=== PATIENT | male | born 1995 | race Caucasian/White ===

== ENCOUNTER 2018-12-15 18:19 | Emergency (ER) | payer SELFPAY ==
--- NOTE | 2018-12-15 18:51 | ER ---
Nurse's Notes [facility] Name: Benjamin Fields Age: 23 yrs Sex: Male : 1995 Arrival Date: 12/15/2018 Time: 18:20 Bed Waiting Private MD: Diagnosis: Presentation: 12/15 18:36 Presenting complaint: Patient states: My mental health heel caser advised me to come sg to the ER to have a rash evaluated, denies N/V/D/Fever at this time. Transition of care: patient was not received from another setting of care. Onset of symptoms was December 15, 2018. Risk Assessment: Do you want to hurt yourself or someone else? Patient reports no desire to harm self or others. Initial Sepsis Screen: Does the patient meet any 2 criteria? No. Patient's initial sepsis screen is negative. Does the patient have a suspected source of infection? No. Patient's initial sepsis screen is negative. Care prior to arrival: None. 18:36 Method Of Arrival: Ambulatory sg 18:36 Acuity: ADELINA 5 sg Historical: - Allergies: 18:36 NKDA; sg - PMHx: 18:36 Depression; insomnia; sg - PSHx: 18:36 None; sg - Immunization history:: Adult Immunizations up to date. - Social history:: Smoking status: Patient/guardian denies using tobacco. - Ebola Screening: : Patient negative for fever greater than or equal to 101.5 degrees Fahrenheit, and additional compatible Ebola Virus Disease symptoms Patient denies exposure to infectious person Patient denies travel to an Ebola-affected area in the 21 days before illness onset No symptoms or risks identified at this time. ED Course: 18:20 Patient arrived in ED. as 18:36 Arm band placed on. sg 18:37 Triage completed. sg Administered Medications: No medications were administered Outcome: 18:50 Patient left the ED. sg Signatures: Wilian Bhat RN RN Margo Gonzalez as
== END 2018-12-15 18:50 | disposition left against medical advice (07) ==
LOC: ER 18:19
DX: Z53.21 Procedure and treatment not carried out due to patient leaving prior to being seen by health care provider (principal)
CPT/HCPCS: 99281

== ENCOUNTER 2019-06-28 13:51 | Emergency (ER) | payer SELFPAY ==
[2019-06-28] MEDS ORDERED: IBUPROFEN 400 MG TAB ONE (14:31)
[2019-06-28] MEDS ORDERED: CYCLOBENZAPRINE 10 MG TAB ONE (14:31)
[2019-06-28] MEDS ORDERED: ACETAMINOPHEN 325 MG TABLET ONE (14:32)
--- NOTE | 2019-06-28 15:05 | RAD REPORT ---
EXAM DESCRIPTION: RAD - Shoulder Right 2 View - 06/28/2019 2:44 pm CLINICAL HISTORY: Right shoulder pain FINDINGS: No fracture or dislocation is seen. No bone or joint abnormality seen
--- NOTE | 2019-06-28 15:30 | EDPHYS ---
Physician Documentation [facility] Name: Benjamin Fields Age: 24 yrs Sex: Male : 1995 Arrival Date: 06/28/2019 Time: 13:53 Bed 25 Private MD: ED Physician Ed Ibarra HPI: 06/28 14:25 This 24 yrs old Male presents to ER via Ambulatory with complaints of cp Shoulder Pain. 14:25 The patient or guardian complains of pain, that is acute. right shoulder. Context: cp resulted from an unknown reason, The patient reports no obvious deformity. 14:25 Onset: The symptoms/episode began/occurred 2 day(s) ago. cp 14:25 Associated signs and symptoms: Pertinent positives: radiating pain to right lateral cp neck, Pertinent negatives: chest pain, dyspnea, Numbness in left arm shortness of breath, tingling, Weakness in left arm. Severity of symptoms: in the emergency department the symptoms are unchanged, despite home interventions. Historical: - Allergies: 14:10 NKDA; ss - Home Meds: 14:10 None [Active]; ss - PMHx: 14:10 Depression; ss - PSHx: 14:10 None; ss - Immunization history:: Adult Immunizations not up to date. - Social history:: Smoking status: Patient uses tobacco products, smokes one-half pack cigarettes per day. - Ebola Screening: : Patient denies exposure to infectious person Patient denies travel to an Ebola-affected area in the 21 days before illness onset. ROS: 14:30 Constitutional: Negative for body aches, chills, fever, poor PO intake. cp 14:30 Neck: Positive for pain with movement, pain at rest, of the right lateral neck, cp Negative for injury or acute deformity, stiffness. 14:30 Cardiovascular: Negative for chest pain, edema, palpitations. 14:30 Respiratory: Negative for cough, shortness of breath, wheezing. 14:30 MS/extremity: Positive for pain, of the right shoulder, Negative for injury or acute deformity, decreased range of motion, paresthesias. 14:30 Neuro: Negative for headache, weakness. 14:30 All other systems are negative. Exam: 15:30 Head/Face: Normocephalic, atraumatic. cp 15:30 Constitutional: The patient appears in no acute distress, alert, awake, non-toxic, well developed, well nourished. 15:30 Neck: External neck: tenderness, right lateral neck, C-spine: vertebral tenderness, is not appreciated, crepitus, is not appreciated. 15:30 Chest/axilla: Inspection: normal, Palpation: is normal, no crepitus, no tenderness. 15:30 Cardiovascular: Rate: normal, Rhythm: regular, Pulses: Pulses are 2+ in right radial artery and left radial artery. Heart sounds: murmur, not appreciated. 15:30 Respiratory: the patient does not display signs of respiratory distress, Respirations: normal, no use of accessory muscles, no retractions, no splinting, no tachypnea, labored breathing, is not present. 15:30 Musculoskeletal/extremity: ROM: full passive range of motion, in the right shoulder, Joints: All joints are normal except the right shoulder displays painful range of motion, tenderness. Vital Signs: 14:10 BP 110 / 75; Pulse 90; Resp 16; Temp 98.2(O); Pulse Ox 96% on R/A; Weight 95.25 kg; ss Height 5 ft. 10 in. (177.80 cm); Pain 6/10; 15:37 BP 111 / 78; Pulse 80; Resp 18; Temp 98; Pulse Ox 99% on R/A; mg2 14:10 Body Mass Index 30.13 (95.25 kg, 177.80 cm) ss MDM: 14:17 Patient medically screened. su 15:29 Data reviewed: vital signs, nurses notes, radiologic studies, plain films. 15:29 Differential diagnosis: Anterior dislocation with fracture, Anterior dislocation cp without fracture, Posterior dislocation with fracture, Posterior dislocation without fracture, tendonitis. Test interpretation: by ED physician or midlevel provider: plain radiologic studies, xrays right shoulder negative for fracture. Counseling: I had a detailed discussion with the patient and/or guardian regarding: the historical points, exam findings, and any diagnostic results supporting the discharge/admit diagnosis, radiology results, the need for outpatient follow up, a orthopedic surgeon, to return to the emergency department if symptoms worsen or persist or if there are any questions or concerns that arise at home. Response to treatment: the patient's symptoms have markedly improved after treatment, and as a result, I will discharge patient. 06/28 14:23 Order name: XRAY Shoulder RIGHT 2 view; Complete Time: 15:28 cp 06/28 15:28 Interpretation: Reviewed. cp 06/28 15:28 Order name: Sling; Complete Time: 15:36 cp Administered Medications: 14:33 Drug: Flexeril 10 mg Route: PO; tr5 15:00 Follow up: Response: No adverse reaction; Marked relief of symptoms mg2 14:33 Drug: Tylenol 650 mg Route: PO; tr5 15:00 Follow up: Response: No adverse reaction; Marked relief of symptoms mg2 14:34 Drug: Ibuprofen 800 mg Route: PO; tr5 15:00 Follow up: Response: No adverse reaction; Marked relief of symptoms mg2 Disposition: 16:00 Chart complete. cp Disposition: 06/28/19 15:29 Discharged to Home. Impression: Pain in right shoulder. - Condition is Stable. - Discharge Instructions: Shoulder Pain, Shoulder Range of Motion Exercises. - Prescriptions for Cyclobenzaprine 10 mg Oral Tablet - take 1 tablet by ORAL route every 8 hours As needed no driving while taking medication; 20 tablet. Diclofenac Sodium 75 mg Oral Tablet Sustained Release - take 1 tablet by ORAL route 2 times per day; 30 tablet. - Medication Reconciliation Form, Thank You Letter, Antibiotic Education, Prescription Opioid Use, Work release form form. - Follow up: Calvin Conway MD; When: 5 - 6 days; Reason: pain continues. - Problem is new. - Symptoms have improved. Addendum: 06/30/2019 08:04 Co-signature as Attending Physician, Ed Ibarra MD I agree with the assessment and c echeverria plan of care. Signatures: Dispatcher [employer] EDMT Ed Ibarra MD MD cha Smirch, Shelby, RN RN ss Ed Hutchison PA PA cp Conor Lopez RN RN mg2 Cali Goodwin RN RN tr5 Corrections: (The following items were deleted from the chart) 06/28 15:47 15:29 06/28/2019 15:29 Discharged to Home. Impression: Pain in right shoulder. mg2 Condition is Stable. Forms are Medication Reconciliation Form, Thank You Letter, Antibiotic Education, Prescription Opioid Use. Follow up: Dr. Calvin Conway; When: 5 - 6 days; Reason: pain continues. Problem is new. Symptoms have improved. cp 06/29 15:16 06/28 14:25 Onset: The symptoms/episode began/occurred 4 day(s) ago, cp cp
--- NOTE | 2019-06-28 15:30 | ER ---
Nurse's Notes [facility] Name: Benjamin Fields Age: 24 yrs Sex: Male : 1995 Arrival Date: 06/28/2019 Time: 13:53 Bed 25 Private MD: Diagnosis: Pain in right shoulder Presentation: 06/28 14:08 Presenting complaint: Patient states: R shoulder pain x 2 days that has now began to ss migrate up R side of neck. Worse with range of motion. Denies injury. Transition of care: patient was not received from another setting of care. Onset of symptoms was June 26, 2019. Risk Assessment: Do you want to hurt yourself or someone else? Patient reports no desire to harm self or others. Initial Sepsis Screen: Does the patient meet any 2 criteria? No. Patient's initial sepsis screen is negative. Does the patient have a suspected source of infection? No. Patient's initial sepsis screen is negative. Care prior to arrival: None. 14:08 Method Of Arrival: Ambulatory ss 14:08 Acuity: ADELINA 4 ss Historical: - Allergies: 14:10 NKDA; ss - Home Meds: 14:10 None [Active]; ss - PMHx: 14:10 Depression; ss - PSHx: 14:10 None; ss - Immunization history:: Adult Immunizations not up to date. - Social history:: Smoking status: Patient uses tobacco products, smokes one-half pack cigarettes per day. - Ebola Screening: : Patient denies exposure to infectious person Patient denies travel to an Ebola-affected area in the 21 days before illness onset. Screenin:34 Abuse screen: Denies threats or abuse. Nutritional screening: No deficits noted. tr5 Tuberculosis screening: No symptoms or risk factors identified. Fall Risk None identified. Assessment: 14:34 General: Appears uncomfortable, Behavior is calm, cooperative, appropriate for age. tr5 Pain: Complains of pain in anterior aspect of right shoulder and posterior aspect of right shoulder Pain radiates to neck Pain at worst was 6 out of 10 on a pain scale. Quality of pain is described as stabbing, Pain began 2-3 days ago. Is intermittent, Alleviated by rest, Aggravated by increased activity, repositioning. Neuro: Level of Consciousness is awake, alert, obeys commands, Oriented to person, place, time, Medical Practice Assistant are equal bilaterally Moves all extremities. Cardiovascular: Heart tones present Capillary refill < 3 seconds Pulses are all present. Edema is absent. Respiratory: Airway is patent Trachea midline Respiratory effort is even, unlabored, Respiratory pattern is regular, symmetrical. GI: No signs and/or symptoms were reported involving the gastrointestinal system. : No signs and/or symptoms were reported regarding the genitourinary system. EENT: No signs and/or symptoms were reported regarding the EENT system. Derm: No signs and/or symptoms reported regarding the dermatologic system. Musculoskeletal: Capillary refill < 3 seconds, Range of motion: intact in all extremities. Vital Signs: 14:10 BP 110 / 75; Pulse 90; Resp 16; Temp 98.2(O); Pulse Ox 96% on R/A; Weight 95.25 kg; ss Height 5 ft. 10 in. (177.80 cm); Pain 6/10; 15:37 BP 111 / 78; Pulse 80; Resp 18; Temp 98; Pulse Ox 99% on R/A; mg2 14:10 Body Mass Index 30.13 (95.25 kg, 177.80 cm) ss ED Course: 13:53 Patient arrived in ED. rg4 14:09 Triage completed. ss 14:10 Arm band placed on right wrist. ss 14:15 Ed Hutchison PA is PHCP. cp 14:15 Ed Ibarra MD is Attending Physician. cp 14:26 Conor Lopez, LAILA is Primary Nurse. mg2 14:34 Awaiting radiology results. tr5 14:34 Bed in low position. Call light in reach. Side rails up X 1. tr5 14:44 XRAY Shoulder RIGHT 2 view In Process Unspecified. EDMS 15:28 Calvin Conway MD is Referral Physician. cp 15:36 No provider procedures requiring assistance completed. Patient did not have IV access mg2 during this emergency room visit. Sling applied to right arm. Administered Medications: 14:33 Drug: Flexeril 10 mg Route: PO; tr5 15:00 Follow up: Response: No adverse reaction; Marked relief of symptoms mg2 14:33 Drug: Tylenol 650 mg Route: PO; tr5 15:00 Follow up: Response: No adverse reaction; Marked relief of symptoms mg2 14:34 Drug: Ibuprofen 800 mg Route: PO; tr5 15:00 Follow up: Response: No adverse reaction; Marked relief of symptoms mg2 Outcome: 15:29 Discharge ordered by . kerwin 15:36 Discharged to home ambulatory. mg2 15:36 Condition: stable 15:36 Discharge instructions given to patient, Instructed on discharge instructions, follow up and referral plans. medication usage, Demonstrated understanding of instructions, follow-up care, medications, Prescriptions given X 2. 15:47 Patient left the ED. mg2 Signatures: Dispatcher [employer] EDMS Deanna Horvath RN RN ss Ed Hutchison PA PA Ellen Iniguez rg4 Conor Lopez RN RN mg2 Cali Goodwin RN RN tr5
[2019-06-28 15:59] VITALS: BP 111/78; TEMP 98; O2SAT 99
== END 2019-06-28 15:47 | disposition home or self-care (01) ==
LOC: ER 13:51
DX: M25.511 Pain in right shoulder (principal); F17.210 Nicotine dependence, cigarettes, uncomplicated
CPT/HCPCS: 99284